=== PATIENT | male | born 1935 | race Caucasian/White ===

== ENCOUNTER 2016-11-23 07:34 | Inpatient (IN) | payer MEDICARE, MEDICAID ==
[~2016-11-23] VITALS: Ht 180.3 cm; Wt 75.8 kg
[~2016-11-23 07:34] MED LIST: ACET-1757 PO; ALPR0.25 PO; AMLO2.5T PO; BISA10SU54 PR; CARV3.122 PO; CARV6.2512 PO; CYAN10002 IM; DOCU-30 PO; FLUT9.9S NAS; HEPA5000 SQ; HYDR-3240 PO; IBUP200T5 PO; LEVO50TA PO; LEVO50TA5 PO; LEVO75TA PO; LISI-170 PO; LORA-446 IVPush; LOSA50TA6 PO; MULT-750 PO; POLY17PO5 PO
[2016-11-23] MEDS ORDERED: SODIUM CHLORIDE 0.9% 1,000 ML IV ONE (07:57)
[2016-11-23] MEDS ORDERED: ASPIRIN 81 MG TABLET CHEW PO ONE (08:00)
[2016-11-23] MEDS ORDERED: SODIUM CHLORIDE FLUSH 10ML SYR IVF ONE (08:00)
[2016-11-23] MEDS ORDERED: ASPIRIN 81 MG TABLET CHEW ONE (08:18)
[2016-11-23 08:39] LABS: HEMOGLOBIN 12.6 g/dL (13.7-18.0)
[2016-11-23 08:59] LABS: BLOOD UREA NITROGEN 9 mg/dL (7-18)
[2016-11-23 09:05] LABS: IS PT STATUS REG ER OR PRE ER? YES
[2016-11-23] MEDS ORDERED: AMPICILLIN/SULBACTAM 3 GM in SODIUM CHLORIDE 0.9% 100 ML IV ONE (09:30)
[2016-11-23] MEDS ORDERED: POLYETHYLENE GLYCOL 17 GM PACKET PO PRN (10:00)
[2016-11-23] MEDS ORDERED: ONDANSETRON 2MG/ML, 2ML IVP PRN (10:00)
[2016-11-23] MEDS: AMPICILLIN/SULBACTAM 1,500 MG in SODIUM CHLORIDE 0.9% 50 ML IV SCH ×3 (10:00→21:54)
[2016-11-23] MEDS: FLUTICASONE NASAL SPRAY 16GM NAS SCH (10:00)
[2016-11-23] MEDS ORDERED: MORPHINE SULFATE 4 MG/ML, 1ML IVPush PRN (10:00)
[2016-11-23] MEDS ORDERED: VANCOMYCIN PER PHARMACY MC PRN (10:00)
[2016-11-23] MEDS ORDERED: PLEASE ENTER ALLERGIES MC SCH ×2 (11:00)
[2016-11-23] MEDS ORDERED: HYDROcodone/APAP 5/325 TABLET ONE (12:03)
[2016-11-23] MEDS: SODIUM CHLORIDE 0.9% 1,000 ML IV SCH ×2 (12:08→17:23)
[2016-11-23] MEDS: HYDROcodone/APAP 5/325 TABLET PO PRN ×3 (12:08→23:15)
[2016-11-23 13:51] VITALS: BP 132/69
[2016-11-23] MEDS ORDERED: PHARMACOKINETIC CONSULTATION MC ONE (14:30)
[2016-11-23] MEDS ORDERED: PHARMACOKINETIC MONITORING MC PRN (14:30)
[2016-11-23] MEDS: ENOXAPARIN 40 MG/0.4 ML SQ SCH (17:23)
[2016-11-23] MEDS: VANCOMYCIN 1,400 MG in SODIUM CHLORIDE 0.9% 250 ML IV SCH (17:23)
[2016-11-23] MEDS: LEVOTHYROXINE 75 MCG TABLET PO SCH (17:23)
[2016-11-23 18:57] VITALS: BP 168/87
[2016-11-24] MEDS: SODIUM CHLORIDE 0.9% 1,000 ML IV SCH ×3 (01:30→16:49)
[2016-11-24 02:00] VITALS: BP 146/73
[2016-11-24] MEDS: AMPICILLIN/SULBACTAM 1,500 MG in SODIUM CHLORIDE 0.9% 50 ML IV SCH ×4 (04:21→21:34)
[2016-11-24 05:21] LABS: HEMOGLOBIN 10.4 g/dL (13.7-18.0)
[2016-11-24 05:35] LABS: BLOOD UREA NITROGEN 15 mg/dL (7-18)
[2016-11-24] MEDS: HYDROcodone/APAP 5/325 TABLET PO PRN ×3 (05:57→19:42)
[2016-11-24 07:11] VITALS: BP 128/72
[2016-11-24] MEDS: SENNA/DOCUSATE TABLET PO SCH (09:00)
[2016-11-24] MEDS: ENOXAPARIN 40 MG/0.4 ML SQ SCH (09:40)
[2016-11-24] MEDS: FLUTICASONE NASAL SPRAY 16GM NAS SCH (09:41)
[2016-11-24] MEDS: CYANOCOBALAMIN 1,000 MCG/ML, 1ML IM SCH (09:41)
[2016-11-24] MEDS: VANCOMYCIN 1,400 MG in SODIUM CHLORIDE 0.9% 250 ML IV SCH (14:00)
[2016-11-24 14:43] VITALS: BP 124/63
[2016-11-24 20:17] VITALS: BP 134/63
[2016-11-25] MEDS: HYDROcodone/APAP 5/325 TABLET PO PRN (00:19)
[2016-11-25 02:12] VITALS: BP 151/82
[2016-11-25] MEDS: SODIUM CHLORIDE 0.9% 1,000 ML IV SCH (03:43)
[2016-11-25] MEDS: AMPICILLIN/SULBACTAM 1,500 MG in SODIUM CHLORIDE 0.9% 50 ML IV SCH ×4 (03:44→22:18)
[2016-11-25] MEDS: LORazepam 2 MG/ML, 1ML IVPush PRN ×2 (03:49→19:30)
[2016-11-25 05:25] LABS: HEMOGLOBIN 9.8 g/dL (13.7-18.0)
[2016-11-25 05:33] LABS: BLOOD UREA NITROGEN 13 mg/dL (7-18)
[2016-11-25 06:45] VITALS: BP 169/84
[2016-11-25] MEDS: FLUTICASONE NASAL SPRAY 16GM NAS SCH (09:02)
[2016-11-25] MEDS: CYANOCOBALAMIN 1,000 MCG/ML, 1ML IM SCH (09:02)
[2016-11-25] MEDS: SENNA/DOCUSATE TABLET PO SCH (09:03)
[2016-11-25] MEDS: LEVOTHYROXINE 75 MCG TABLET PO SCH (09:03)
[2016-11-25] MEDS: AMLODIPINE 5 MG TABLET PO SCH (09:06)
[2016-11-25] MEDS: ENOXAPARIN 40 MG/0.4 ML SQ SCH (09:06)
[2016-11-25 14:10] VITALS: BP 152/85
[2016-11-25] MEDS: VANCOMYCIN 1,400 MG in SODIUM CHLORIDE 0.9% 250 ML IV SCH (15:32)
[2016-11-25 19:57] VITALS: BP 152/84
[2016-11-26 03:00] VITALS: BP 172/90
[2016-11-26] MEDS: LORazepam 2 MG/ML, 1ML IVPush PRN (03:20)
[2016-11-26] MEDS: AMPICILLIN/SULBACTAM 1,500 MG in SODIUM CHLORIDE 0.9% 50 ML IV SCH ×2 (03:20→10:26)
[2016-11-26 06:48] VITALS: BP 150/88
[2016-11-26] MEDS: FLUTICASONE NASAL SPRAY 16GM NAS SCH (08:57)
[2016-11-26] MEDS: AMLODIPINE 5 MG TABLET PO SCH (08:58)
[2016-11-26] MEDS: SENNA/DOCUSATE TABLET PO SCH (08:58)
[2016-11-26] MEDS: ENOXAPARIN 40 MG/0.4 ML SQ SCH (10:27)
[2016-11-26 13:56] VITALS: BP 161/80
[2016-11-26] MEDS: CYANOCOBALAMIN 1,000 MCG TABLET PO SCH (14:26)
[2016-11-26] MEDS: VANCOMYCIN 1,400 MG in SODIUM CHLORIDE 0.9% 250 ML IV SCH (14:26)
[2016-11-26] MEDS: CHLORDIAZEPOXIDE 25 MG CAPSULE PO SCH ×2 (17:55→21:06)
[2016-11-26] MEDS: PIPERACILLIN/TAZO/PMX 3.375GM 50 ML IV SCH ×2 (17:55→23:03)
[2016-11-26 18:15] VITALS: BP 141/82
[2016-11-27 03:54] VITALS: BP 171/94
[2016-11-27] MEDS: PIPERACILLIN/TAZO/PMX 3.375GM 50 ML IV SCH ×4 (05:11→22:55)
[2016-11-27 05:12] LABS: BLOOD UREA NITROGEN 12 mg/dL (7-18)
[2016-11-27 06:56] VITALS: BP 161/91
[2016-11-27] MEDS: CHLORDIAZEPOXIDE 25 MG CAPSULE PO SCH ×3 (08:30→21:50)
[2016-11-27] MEDS: ENOXAPARIN 40 MG/0.4 ML SQ SCH (08:30)
[2016-11-27] MEDS: FLUTICASONE NASAL SPRAY 16GM NAS SCH (08:30)
[2016-11-27] MEDS: CYANOCOBALAMIN 1,000 MCG TABLET PO SCH (08:30)
[2016-11-27] MEDS: LEVOTHYROXINE 75 MCG TABLET PO SCH (08:31)
[2016-11-27] MEDS: AMLODIPINE 5 MG TABLET PO SCH (08:31)
[2016-11-27] MEDS: SENNA/DOCUSATE TABLET PO SCH (08:31)
[2016-11-27] MEDS: METOPROLOL TARTRATE 25 MG TABLET PO SCH ×2 (11:31→17:24)
[2016-11-27] MEDS: HYDROcodone/APAP 5/325 TABLET PO PRN ×2 (11:52→19:21)
[2016-11-27 14:05] VITALS: BP 119/63
[2016-11-27] MEDS: VANCOMYCIN 1,400 MG in SODIUM CHLORIDE 0.9% 250 ML IV SCH (14:17)
[2016-11-27 20:14] VITALS: BP 145/87
[2016-11-28 01:28] VITALS: BP 131/77
[2016-11-28] MEDS: HYDROcodone/APAP 5/325 TABLET PO PRN ×3 (02:27→23:26)
[2016-11-28] MEDS: PIPERACILLIN/TAZO/PMX 3.375GM 50 ML IV SCH ×4 (05:23→23:19)
[2016-11-28] MEDS: METOPROLOL TARTRATE 25 MG TABLET PO SCH ×2 (06:09→17:46)
[2016-11-28 07:38] VITALS: BP 132/71
[2016-11-28] MEDS: FLUTICASONE NASAL SPRAY 16GM NAS SCH (08:10)
[2016-11-28] MEDS: SENNA/DOCUSATE TABLET PO SCH (08:10)
[2016-11-28] MEDS: AMLODIPINE 5 MG TABLET PO SCH (08:11)
[2016-11-28] MEDS: CYANOCOBALAMIN 1,000 MCG TABLET PO SCH (08:11)
[2016-11-28] MEDS: CHLORDIAZEPOXIDE 25 MG CAPSULE PO SCH (08:11)
[2016-11-28] MEDS: ENOXAPARIN 40 MG/0.4 ML SQ SCH (08:11)
[2016-11-28] MEDS: DOXYCYCLINE 100MG TABLET PO SCH ×2 (10:46→20:43)
[2016-11-28 12:56] VITALS: BP 119/68
[2016-11-28 16:32] VITALS: BP 116/71
[2016-11-28 18:26] VITALS: BP 138/83
[2016-11-28] MEDS: CHLORDIAZEPOXIDE 10 MG CAPSULE PO SCH (20:48)
[2016-11-29 01:00] VITALS: BP 135/75
[2016-11-29] MEDS: HYDROcodone/APAP 5/325 TABLET PO PRN (04:28)
[2016-11-29 04:57] LABS: HEMOGLOBIN 11.2 g/dL (13.7-18.0)
[2016-11-29] MEDS: PIPERACILLIN/TAZO/PMX 3.375GM 50 ML IV SCH ×2 (04:58→11:28)
[2016-11-29 05:09] LABS: BLOOD UREA NITROGEN 18 mg/dL (7-18)
[2016-11-29] MEDS: METOPROLOL TARTRATE 25 MG TABLET PO SCH ×2 (05:58→18:35)
[2016-11-29 08:28] VITALS: BP 138/82
[2016-11-29] MEDS: FLUTICASONE NASAL SPRAY 16GM NAS SCH (10:39)
[2016-11-29] MEDS: LEVOTHYROXINE 75 MCG TABLET PO SCH (10:39)
[2016-11-29] MEDS: DOXYCYCLINE 100MG TABLET PO SCH (10:39)
[2016-11-29] MEDS: AMLODIPINE 5 MG TABLET PO SCH (10:40)
[2016-11-29] MEDS: ENOXAPARIN 40 MG/0.4 ML SQ SCH (10:40)
[2016-11-29] MEDS: CHLORDIAZEPOXIDE 10 MG CAPSULE PO SCH (10:40)
[2016-11-29] MEDS: CYANOCOBALAMIN 1,000 MCG TABLET PO SCH (10:40)
[2016-11-29] MEDS: SENNA/DOCUSATE TABLET PO SCH (10:41)
[2016-11-29] MEDS ORDERED: TAMSULOSIN 0.4 MG CAP.ER.24H PO SCH (13:00)
[2016-11-29] MEDS ORDERED: TAMS-11 PO (13:27)
[2016-11-29] MEDS ORDERED: SULF1TAB3 PO (13:27)
[2016-11-29] MEDS ORDERED: AMLO5TAB2 PO (13:27)
[2016-11-29] MEDS ORDERED: LORA-445 PO (13:28)
[2016-11-29 14:00] VITALS: BP 128/75
[2016-11-29] MEDS ORDERED: SULFAMETH./TRIMETHOPRIM DS 800MG/160MG TABLET PO SCH (21:00)
== END 2016-11-29 19:00 | DRG 872 ==
LOC: ED 08:39 → EDIP 09:10 → 3NE 13:37
PROVIDERS: ADMIT Internal Medicine; ATTEND Internal Medicine
PROC: 0T9B70Z Drainage of Bladder with Drainage Device, Via Natural or Artificial Opening (ICD-10-PCS; principal; 2016-11-23)
DX: A41.9 Sepsis, unspecified organism (principal); L03.115 Cellulitis of right lower limb; F10.239 Alcohol dependence with withdrawal, unspecified; E87.1 Hypo-osmolality and hyponatremia; Z66 Do not resuscitate; E03.9 Hypothyroidism, unspecified; I10 Essential (primary) hypertension; I49.5 Sick sinus syndrome; I25.10 Atherosclerotic heart disease of native coronary artery without angina pectoris; J30.2 Other seasonal allergic rhinitis; D53.9 Nutritional anemia, unspecified; Z95.0 Presence of cardiac pacemaker; Z90.89 Acquired absence of other organs; Z88.5 Allergy status to narcotic agent; Z91.19 Patient's noncompliance with other medical treatment and regimen
CPT/HCPCS: 36415; 71010; 80048; 80202; 81003; 82040; 83605; 83735; 84145; 84484; 85025; 85610; 85730; 87040; 87070; 87186; 87205; 93005; 93922; 99285; J0295; J1650; J2543; J3370; J2060; J3420; J7030; J7050

== ENCOUNTER 2016-12-17 13:31 | Inpatient (IN) | payer MEDICARE, MEDICAID ==
[~2016-12-17] VITALS: Ht 180.3 cm; Wt 75.4 kg
[~2016-12-17 13:31] MED LIST changes: +AMLO5TAB2 PO; +LORA-445 PO; +SULF1TAB3 PO; +TAMS-11 PO
[2016-12-17] MEDS ORDERED: SODIUM CHLORIDE FLUSH 10ML SYR IVF ONE (14:00)
[2016-12-17 14:17] LABS: HEMOGLOBIN 12.4 g/dL (13.7-18.0)
[2016-12-17 14:21] LABS: ASPARTATE AMINO TRANSFERASE 18 U/L (15-37); BLOOD UREA NITROGEN 16 mg/dL (7-18)
[2016-12-17] MEDS ORDERED: METO25TA35 PO (15:35)
[2016-12-17] MEDS ORDERED: AMLO5TAB2 PO (15:35)
[2016-12-17] MEDS ORDERED: OMNIPAQUE 350 MG/ML, 100ML BOTTLE ONE (16:17)
[2016-12-17 18:30] VITALS: BP 164/81
[2016-12-17] MEDS ORDERED: BISACODYL 10 MG SUPP PR PRN (18:30)
[2016-12-17] MEDS ORDERED: MORPHINE SULFATE 4 MG/ML, 1ML IVPush PRN (18:30)
[2016-12-17] MEDS ORDERED: DOCUSATE 100 MG CAPSULE PO PRN (18:30)
[2016-12-17] MEDS: ENOXAPARIN 40 MG/0.4 ML SQ SCH (18:30)
[2016-12-17] MEDS ORDERED: ONDANSETRON 2MG/ML, 2ML IVP PRN (18:30)
[2016-12-17] MEDS ORDERED: LORazepam 1MG TABLET PO PRN (18:30)
[2016-12-17] MEDS ORDERED: POLYETHYLENE GLYCOL 17 GM PACKET PO PRN (18:30)
[2016-12-17] MEDS ORDERED: HYDROcodone/APAP 5/325 TABLET PO PRN (18:30)
[2016-12-17] MEDS ORDERED: ONDANSETRON ODT 4 MG PO PRN (18:30)
[2016-12-17] MEDS ORDERED: ENALAPRILAT 1.25 MG/ML, 2ML IVPush PRN (18:30)
[2016-12-17 19:15] VITALS: BP 164/81
[2016-12-17] MEDS: METOPROLOL TARTRATE 25 MG TABLET PO SCH (21:00)
[2016-12-17 21:37] LABS: DAU SCREEN DISCLAIMER
[2016-12-18 00:19] VITALS: BP 152/94
[2016-12-18 06:10] LABS: HEMOGLOBIN 12.3 g/dL (13.7-18.0)
[2016-12-18] MEDS: LEVOTHYROXINE 75 MCG TABLET PO SCH (06:30)
[2016-12-18 06:58] LABS: ASPARTATE AMINO TRANSFERASE 18 U/L (15-37); BLOOD UREA NITROGEN 16 mg/dL (7-18)
[2016-12-18 07:25] VITALS: BP 155/84
[2016-12-18] MEDS: AMLODIPINE 5 MG TABLET PO SCH (09:50)
[2016-12-18] MEDS: TAMSULOSIN 0.4 MG CAP.ER.24H PO SCH (09:51)
[2016-12-18] MEDS: MULTIVITAMIN 1 TABLET PO SCH (09:51)
[2016-12-18] MEDS: FOLIC ACID 1 MG TABLET PO SCH (09:51)
[2016-12-18] MEDS: THIAMINE 100MG TABLET PO SCH (09:51)
[2016-12-18] MEDS: METOPROLOL TARTRATE 25 MG TABLET PO SCH ×2 (09:52→21:00)
[2016-12-18] MEDS ORDERED: LORazepam 1MG TABLET PO PRN ×4 (11:30)
[2016-12-18] MEDS ORDERED: POTASSIUM CHLORIDE 20 MEQ, MAGNESIUM SULFATE 1 GM, THIAMINE 100 MG, FOLIC ACID 1 MG, MV... IV SCH (11:30)
[2016-12-18] MEDS ORDERED: LORazepam 0.5MG TABLET PO PRN (11:30)
[2016-12-18] MEDS ORDERED: LORazepam 2 MG/ML, 1ML IV PRN ×5 (11:30)
[2016-12-18 13:08] VITALS: BP 151/89
[2016-12-18] MEDS ORDERED: CYANOCOBALAMIN 1,000 MCG/ML, 1ML IM ONE (17:30)
[2016-12-18] MEDS: ENOXAPARIN 40 MG/0.4 ML SQ SCH (17:37)
[2016-12-18 18:54] VITALS: BP 120/73
[2016-12-19 01:21] VITALS: BP 153/83
[2016-12-19 06:26] LABS: HEMOGLOBIN 12.1 g/dL (13.7-18.0)
[2016-12-19 06:44] LABS: ASPARTATE AMINO TRANSFERASE 20 U/L (15-37); BLOOD UREA NITROGEN 14 mg/dL (7-18)
[2016-12-19 06:55] VITALS: BP 142/77
[2016-12-19] MEDS: MULTIVITAMIN 1 TABLET PO SCH (09:03)
[2016-12-19] MEDS: METOPROLOL TARTRATE 25 MG TABLET PO SCH ×2 (09:03→21:35)
[2016-12-19] MEDS: THIAMINE 100MG TABLET PO SCH (09:03)
[2016-12-19] MEDS: FOLIC ACID 1 MG TABLET PO SCH (09:03)
[2016-12-19] MEDS: AMLODIPINE 5 MG TABLET PO SCH (09:03)
[2016-12-19] MEDS: TAMSULOSIN 0.4 MG CAP.ER.24H PO SCH (11:46)
[2016-12-19 13:23] VITALS: BP 149/87
[2016-12-19] MEDS: FLUTICASONE NASAL SPRAY 16GM NAS SCH (13:42)
[2016-12-19] MEDS: ENOXAPARIN 40 MG/0.4 ML SQ SCH (17:51)
[2016-12-19] MEDS: ACETAMINOPHEN 325 MG TABLET PO PRN (17:51)
[2016-12-19 19:09] VITALS: BP 112/71
[2016-12-20] MEDS: ACETAMINOPHEN 325 MG TABLET PO PRN
[2016-12-20 00:50] VITALS: BP 147/86
[2016-12-20 05:26] LABS: HEMOGLOBIN 12.5 g/dL (13.7-18.0)
[2016-12-20 05:37] LABS: BLOOD UREA NITROGEN 14 mg/dL (7-18)
[2016-12-20 05:40] LABS: ASPARTATE AMINO TRANSFERASE 10 U/L (15-37)
[2016-12-20] MEDS: LEVOTHYROXINE 75 MCG TABLET PO SCH (05:59)
[2016-12-20 06:38] VITALS: BP 126/73
[2016-12-20] MEDS: TAMSULOSIN 0.4 MG CAP.ER.24H PO SCH (10:08)
[2016-12-20] MEDS: FLUTICASONE NASAL SPRAY 16GM NAS SCH (10:08)
[2016-12-20] MEDS: AMLODIPINE 5 MG TABLET PO SCH (10:09)
[2016-12-20] MEDS: THIAMINE 100MG TABLET PO SCH (10:10)
[2016-12-20] MEDS: METOPROLOL TARTRATE 25 MG TABLET PO SCH ×2 (10:10→20:13)
[2016-12-20] MEDS: MULTIVITAMIN 1 TABLET PO SCH (10:10)
[2016-12-20] MEDS: FOLIC ACID 1 MG TABLET PO SCH (10:10)
[2016-12-20 14:27] VITALS: BP 114/69
[2016-12-20] MEDS: ENOXAPARIN 40 MG/0.4 ML SQ SCH (17:32)
[2016-12-20 18:30] VITALS: BP 109/68
[2016-12-21 01:06] VITALS: BP 126/79
[2016-12-21 05:06] LABS: HEMOGLOBIN 12.4 g/dL (13.7-18.0)
[2016-12-21 05:19] LABS: BLOOD UREA NITROGEN 18 mg/dL (7-18)
[2016-12-21 05:23] LABS: ASPARTATE AMINO TRANSFERASE 9 U/L (15-37)
[2016-12-21 06:45] VITALS: BP 130/77
[2016-12-21] MEDS: FLUTICASONE NASAL SPRAY 16GM NAS SCH (08:10)
[2016-12-21] MEDS: AMLODIPINE 5 MG TABLET PO SCH (08:11)
[2016-12-21] MEDS: METOPROLOL TARTRATE 25 MG TABLET PO SCH ×2 (08:11→21:00)
[2016-12-21] MEDS: THIAMINE 100MG TABLET PO SCH (08:11)
[2016-12-21] MEDS: FOLIC ACID 1 MG TABLET PO SCH (08:11)
[2016-12-21] MEDS: TAMSULOSIN 0.4 MG CAP.ER.24H PO SCH (08:11)
[2016-12-21] MEDS: MULTIVITAMIN 1 TABLET PO SCH (08:11)
[2016-12-21 12:49] VITALS: BP 100/68
[2016-12-21] MEDS: ENOXAPARIN 40 MG/0.4 ML SQ SCH (18:30)
[2016-12-21 19:23] VITALS: BP 108/67
[2016-12-21 20:45] VITALS: BP 113/71
[2016-12-21 20:46] VITALS: BP 117/71
[2016-12-22 00:28] VITALS: BP 122/73
[2016-12-22] MEDS: LEVOTHYROXINE 75 MCG TABLET PO SCH (05:07)
[2016-12-22 05:58] LABS: HEMOGLOBIN 12.4 g/dL (13.7-18.0)
[2016-12-22 06:21] LABS: ASPARTATE AMINO TRANSFERASE 10 U/L (15-37); BLOOD UREA NITROGEN 23 mg/dL (7-18)
[2016-12-22 07:06] VITALS: BP 140/76
[2016-12-22] MEDS: FOLIC ACID 1 MG TABLET PO SCH (10:29)
[2016-12-22] MEDS: AMLODIPINE 5 MG TABLET PO SCH (10:29)
[2016-12-22] MEDS: THIAMINE 100MG TABLET PO SCH (10:29)
[2016-12-22] MEDS: FLUTICASONE NASAL SPRAY 16GM NAS SCH (10:29)
[2016-12-22] MEDS: TAMSULOSIN 0.4 MG CAP.ER.24H PO SCH (10:29)
[2016-12-22] MEDS: MULTIVITAMIN 1 TABLET PO SCH (10:29)
[2016-12-22] MEDS: METOPROLOL TARTRATE 25 MG TABLET PO SCH ×2 (10:29→20:32)
[2016-12-22] MEDS: ACETAMINOPHEN 325 MG TABLET PO PRN (10:36)
[2016-12-22 13:05] VITALS: BP 127/68
[2016-12-22] MEDS: ENOXAPARIN 40 MG/0.4 ML SQ SCH (18:30)
[2016-12-22 18:39] VITALS: BP 108/69
[2016-12-23 02:19] VITALS: BP 114/70
[2016-12-23] MEDS: LEVOTHYROXINE 75 MCG TABLET PO SCH (06:20)
[2016-12-23] MEDS ORDERED: Thiamine Hcl PO (06:55)
[2016-12-23] MEDS ORDERED: FOLI-17 PO (06:55)
[2016-12-23 07:10] VITALS: BP 117/72
[2016-12-23] MEDS: FLUTICASONE NASAL SPRAY 16GM NAS SCH (09:00)
[2016-12-23] MEDS: AMLODIPINE 5 MG TABLET PO SCH (09:01)
[2016-12-23] MEDS: TAMSULOSIN 0.4 MG CAP.ER.24H PO SCH (09:01)
[2016-12-23] MEDS: FOLIC ACID 1 MG TABLET PO SCH (09:01)
[2016-12-23] MEDS: METOPROLOL TARTRATE 25 MG TABLET PO SCH (09:01)
[2016-12-23] MEDS: MULTIVITAMIN 1 TABLET PO SCH (09:01)
[2016-12-23] MEDS: THIAMINE 100MG TABLET PO SCH (09:01)
[2016-12-23 12:44] VITALS: BP 140/79
== END 2016-12-23 14:16 | disposition home health service (06) | DRG 897 ==
LOC: MERGE 13:31 → ED 14:34 → EDIP 15:48 → 3NE 18:20
PROVIDERS: ADMIT Internal Medicine; ATTEND Internal Medicine
PROC: 0T9B70Z Drainage of Bladder with Drainage Device, Via Natural or Artificial Opening (ICD-10-PCS; principal; 2016-12-17)
DX: F10.129 Alcohol abuse with intoxication, unspecified (principal); E87.1 Hypo-osmolality and hyponatremia; E44.1 Mild protein-calorie malnutrition; D53.9 Nutritional anemia, unspecified; E03.9 Hypothyroidism, unspecified; I25.10 Atherosclerotic heart disease of native coronary artery without angina pectoris; R13.10 Dysphagia, unspecified; R06.09 Other forms of dyspnea; R62.7 Adult failure to thrive; E86.0 Dehydration; I49.5 Sick sinus syndrome; I11.0 Hypertensive heart disease with heart failure; I50.9 Heart failure, unspecified; J30.9 Allergic rhinitis, unspecified; E78.5 Hyperlipidemia, unspecified; E86.1 Hypovolemia; Z68.23 Body mass index [BMI] 23.0-23.9, adult; Z91.81 History of falling; Z95.0 Presence of cardiac pacemaker; Z90.89 Acquired absence of other organs
CPT/HCPCS: 36415; 70450; 70496; 70498; 71010; 80053; 80061; 80307; 80329; 81003; 82607; 82746; 83735; 84100; 84439; 84443; 85025; 85651; 93005; 96374; J3411; J3475; J3480; Q9967; G0480; J3420; J7030

== ENCOUNTER 2017-01-23 09:16 | Inpatient (IN) | payer MEDICARE, MEDICAID ==
[~2017-01-23] VITALS: Ht 180.3 cm; Wt 74.4 kg
[~2017-01-23 09:16] MED LIST changes: +FOLI-17 PO; +METO25TA35 PO; +Thiamine Hcl PO
[2017-01-23] MEDS ORDERED: SODIUM CHLORIDE 0.9% 1,000 ML IV ONE (10:05)
[2017-01-23] MEDS ORDERED: CEFTRIAXONE PMX 1GM/50ML 50 ML ONE (10:20)
[2017-01-23] MEDS ORDERED: SODIUM CHLORIDE FLUSH 10ML SYR IVF ONE (10:30)
[2017-01-23] MEDS ORDERED: CEFTRIAXONE PMX 1GM/50ML 50 ML IVPB ONE (10:30)
[2017-01-23 10:43] LABS: ASPARTATE AMINO TRANSFERASE 11 U/L (15-37); BLOOD UREA NITROGEN 29 mg/dL (7-18)
[2017-01-23] MEDS ORDERED: HYDROmorphone 1 MG/ML, 1ML ONE ×2 (11:24→12:40)
[2017-01-23] MEDS ORDERED: ONDANSETRON 2MG/ML, 2ML ONE (11:24)
[2017-01-23] MEDS: HYDROmorphone 1 MG/ML, 1ML IVPush PRN ×2 (11:30→12:43)
[2017-01-23] MEDS ORDERED: ONDANSETRON 2MG/ML, 2ML IVPush ONE (11:30)
[2017-01-23] MEDS ORDERED: SODIUM CHLORIDE FLUSH 10ML SYR IVF PRN (11:30)
[2017-01-23 13:22] VITALS: BP 151/97
[2017-01-23] MEDS ORDERED: LABETALOL 5MG/ML, 20ML IVPush PRN (13:30)
[2017-01-23] MEDS ORDERED: POLYETHYLENE GLYCOL 17 GM PACKET PO PRN (13:30)
[2017-01-23] MEDS ORDERED: ONDANSETRON 2MG/ML, 2ML IVPush PRN (13:30)
[2017-01-23] MEDS ORDERED: ONDANSETRON ODT 4 MG PO PRN (13:30)
[2017-01-23] MEDS ORDERED: PLEASE ENTER ALLERGIES MC SCH ×2 (14:00)
[2017-01-23] MEDS: HEPARIN 5,000 UNITS/ML, 1ML SQ SCH ×2 (16:50→20:49)
[2017-01-23] MEDS: LEVOTHYROXINE 75 MCG TABLET PO SCH (16:50)
[2017-01-23] MEDS: SODIUM CHLORIDE 0.9% 1,000 ML IV SCH (16:50)
[2017-01-23 16:54] LABS: DAU SCREEN DISCLAIMER
[2017-01-23] MEDS: HYDROcodone/APAP 5/325 TABLET PO PRN (16:59)
[2017-01-23] MEDS ORDERED: PHARMACY MAY ADJ FOR RENAL FX MC PRN (17:00)
[2017-01-23] MEDS: CEFTAROLINE 300 MG in SODIUM CHLORIDE 0.9% 100 ML IV SCH (18:25)
[2017-01-23 19:56] VITALS: BP 116/64
[2017-01-23] MEDS: METOPROLOL TARTRATE 25 MG TABLET PO SCH (19:59)
[2017-01-23 20:04] VITALS: BP 96/57
[2017-01-23] MEDS ORDERED: HYDROmorphone 1 MG/ML, 1ML IV ONE (21:00)
[2017-01-23 21:40] VITALS: BP 105/64
[2017-01-24] MEDS: SODIUM CHLORIDE 0.9% 1,000 ML IV SCH ×3 (00:19→19:44)
[2017-01-24] MEDS: HYDROcodone/APAP 5/325 TABLET PO PRN ×4 (00:19→21:30)
[2017-01-24 01:18] VITALS: BP 98/62
[2017-01-24 03:17] VITALS: BP 124/68
[2017-01-24] MEDS: HEPARIN 5,000 UNITS/ML, 1ML SQ SCH ×3 (05:19→21:22)
[2017-01-24] MEDS: LEVOTHYROXINE 50 MCG TABLET PO SCH (05:23)
[2017-01-24] MEDS: CEFTAROLINE 300 MG in SODIUM CHLORIDE 0.9% 100 ML IV SCH (05:23)
[2017-01-24 06:18] LABS: BLOOD UREA NITROGEN 29 mg/dL (7-18)
[2017-01-24 06:23] LABS: ASPARTATE AMINO TRANSFERASE 10 U/L (15-37)
[2017-01-24 07:21] VITALS: BP 117/65
[2017-01-24 08:52] LABS: DIFF TOTAL CELLS COUNTED 100 CELL DIFF
[2017-01-24] MEDS: TAMSULOSIN 0.4 MG CAP.ER.24H PO SCH (09:04)
[2017-01-24] MEDS: SENNA/DOCUSATE TABLET PO SCH (09:05)
[2017-01-24] MEDS: AMLODIPINE 5 MG TABLET PO SCH (09:05)
[2017-01-24] MEDS: METOPROLOL TARTRATE 25 MG TABLET PO SCH ×2 (09:05→21:22)
[2017-01-24] MEDS: FOLIC ACID 1 MG TABLET PO SCH (09:05)
[2017-01-24] MEDS: THIAMINE 100MG TABLET PO SCH (09:05)
[2017-01-24 09:51] LABS: VERIFY COUNTS? YES
[2017-01-24] MEDS: SILVER SULF. CRM 1%, 400GM TP SCH ×2 (10:31→21:21)
[2017-01-24] MEDS: FLUTICASONE NASAL SPRAY 16GM NAS SCH (11:49)
[2017-01-24 13:08] VITALS: BP 114/60
[2017-01-24] MEDS: CEFTAROLINE 600 MG in SODIUM CHLORIDE 0.9% 100 ML IV SCH (16:46)
[2017-01-24 19:40] VITALS: BP 101/53
[2017-01-25] MEDS: SODIUM CHLORIDE 0.9% 1,000 ML IV SCH ×2 (01:58→10:19)
[2017-01-25 02:03] VITALS: BP 107/63
[2017-01-25] MEDS: CEFTAROLINE 600 MG in SODIUM CHLORIDE 0.9% 100 ML IV SCH ×2 (05:02→16:43)
[2017-01-25] MEDS: HEPARIN 5,000 UNITS/ML, 1ML SQ SCH ×3 (06:00→20:48)
[2017-01-25] MEDS: LEVOTHYROXINE 75 MCG TABLET PO SCH (06:15)
[2017-01-25 06:19] LABS: ASPARTATE AMINO TRANSFERASE 14 U/L (15-37); BLOOD UREA NITROGEN 20 mg/dL (7-18)
[2017-01-25 06:56] LABS: DIFF TOTAL CELLS COUNTED 100 CELL DIFF
[2017-01-25 06:59] LABS: VERIFY COUNTS? YES
[2017-01-25 07:28] VITALS: BP 123/62
[2017-01-25] MEDS: FOLIC ACID 1 MG TABLET PO SCH (07:41)
[2017-01-25] MEDS: FLUTICASONE NASAL SPRAY 16GM NAS SCH (07:41)
[2017-01-25] MEDS: TAMSULOSIN 0.4 MG CAP.ER.24H PO SCH (07:41)
[2017-01-25] MEDS: METOPROLOL TARTRATE 25 MG TABLET PO SCH ×2 (07:42→20:48)
[2017-01-25] MEDS: SILVER SULF. CRM 1%, 400GM TP SCH ×2 (07:42→20:48)
[2017-01-25] MEDS: THIAMINE 100MG TABLET PO SCH (07:42)
[2017-01-25] MEDS: SENNA/DOCUSATE TABLET PO SCH (07:42)
[2017-01-25] MEDS: AMLODIPINE 5 MG TABLET PO SCH (07:42)
[2017-01-25 16:30] VITALS: BP 157/76
[2017-01-25 19:10] VITALS: BP 146/73
[2017-01-26 02:02] VITALS: BP 145/85
[2017-01-26] MEDS: CEFTAROLINE 600 MG in SODIUM CHLORIDE 0.9% 100 ML IV SCH ×2 (04:44→17:02)
[2017-01-26] MEDS: HEPARIN 5,000 UNITS/ML, 1ML SQ SCH ×3 (04:44→22:00)
[2017-01-26 05:56] LABS: ASPARTATE AMINO TRANSFERASE 18 U/L (15-37); BLOOD UREA NITROGEN 12 mg/dL (7-18)
[2017-01-26 06:10] LABS: DIFF TOTAL CELLS COUNTED 100 CELL DIFF
[2017-01-26 06:14] LABS: VERIFY COUNTS? YES
[2017-01-26] MEDS: LEVOTHYROXINE 50 MCG TABLET PO SCH (07:52)
[2017-01-26 08:34] VITALS: BP 146/81
[2017-01-26] MEDS: SENNA/DOCUSATE TABLET PO SCH (09:00)
[2017-01-26] MEDS: FLUTICASONE NASAL SPRAY 16GM NAS SCH (09:13)
[2017-01-26] MEDS: THIAMINE 100MG TABLET PO SCH (09:14)
[2017-01-26] MEDS: METOPROLOL TARTRATE 25 MG TABLET PO SCH ×2 (09:14→20:19)
[2017-01-26] MEDS: FOLIC ACID 1 MG TABLET PO SCH (09:14)
[2017-01-26] MEDS: TAMSULOSIN 0.4 MG CAP.ER.24H PO SCH (09:14)
[2017-01-26] MEDS: AMLODIPINE 5 MG TABLET PO SCH (09:14)
[2017-01-26] MEDS: SILVER SULF. CRM 1%, 400GM TP SCH ×2 (09:15→22:13)
[2017-01-26] MEDS: HYDROcodone/APAP 5/325 TABLET PO PRN ×2 (09:37→18:01)
[2017-01-26] MEDS ORDERED: POTASSIUM CHLORIDE 20 MEQ TAB.ER.PRT PO ONE (10:00)
[2017-01-26] MEDS ORDERED: MAGNESIUM SULFATE PMX 2GM/50ML 50 ML IV ONE (11:30)
[2017-01-26 16:04] VITALS: BP 120/67
[2017-01-26] MEDS: CEFAZOLIN PMX 2GM/50ML 50 ML IVPB SCH (18:26)
[2017-01-26 19:47] VITALS: BP 106/62
[2017-01-26] MEDS: ATORVASTATIN 20 MG TABLET PO SCH (20:19)
[2017-01-27] MEDS: HYDROcodone/APAP 5/325 TABLET PO PRN ×4 (00:01→21:24)
[2017-01-27 01:30] VITALS: BP 143/72
[2017-01-27] MEDS: CEFAZOLIN PMX 2GM/50ML 50 ML IVPB SCH ×2 (02:33→09:37)
[2017-01-27] MEDS: ASPIRIN 81 MG TABLET EC PO SCH (05:48)
[2017-01-27] MEDS: LEVOTHYROXINE 75 MCG TABLET PO SCH (05:48)
[2017-01-27] MEDS: HEPARIN 5,000 UNITS/ML, 1ML SQ SCH ×3 (05:49→22:00)
[2017-01-27 05:57] LABS: BLOOD UREA NITROGEN 12 mg/dL (7-18)
[2017-01-27 05:59] LABS: ASPARTATE AMINO TRANSFERASE 14 U/L (15-37)
[2017-01-27 07:43] VITALS: BP 156/75
[2017-01-27] MEDS: SILVER SULF. CRM 1%, 400GM TP SCH ×2 (09:00→21:25)
[2017-01-27] MEDS: SENNA/DOCUSATE TABLET PO SCH (09:00)
[2017-01-27] MEDS: FLUTICASONE NASAL SPRAY 16GM NAS SCH (09:16)
[2017-01-27] MEDS: METOPROLOL TARTRATE 25 MG TABLET PO SCH ×2 (09:16→21:25)
[2017-01-27] MEDS: THIAMINE 100MG TABLET PO SCH (09:17)
[2017-01-27] MEDS: TAMSULOSIN 0.4 MG CAP.ER.24H PO SCH (09:17)
[2017-01-27] MEDS: AMLODIPINE 5 MG TABLET PO SCH (09:17)
[2017-01-27] MEDS: FOLIC ACID 1 MG TABLET PO SCH (09:18)
[2017-01-27 13:24] VITALS: BP 138/70
[2017-01-27 20:07] VITALS: BP 112/66
[2017-01-27] MEDS: ATORVASTATIN 20 MG TABLET PO SCH (21:24)
[2017-01-27] MEDS: AMOXICILLIN/CLAV 875-125MG TABLET PO SCH (21:24)
[2017-01-27] MEDS: SULFAMETH./TRIMETHOPRIM DS 800MG/160MG TABLET PO SCH (21:25)
[2017-01-28 01:50] VITALS: BP 132/74
[2017-01-28] MEDS: HEPARIN 5,000 UNITS/ML, 1ML SQ SCH ×2 (06:00→14:00)
[2017-01-28] MEDS: ASPIRIN 81 MG TABLET EC PO SCH (06:11)
[2017-01-28] MEDS: LEVOTHYROXINE 50 MCG TABLET PO SCH (06:11)
[2017-01-28 06:35] LABS: BLOOD UREA NITROGEN 12 mg/dL (7-18)
[2017-01-28 07:06] VITALS: BP 129/68
[2017-01-28] MEDS: THIAMINE 100MG TABLET PO SCH (08:39)
[2017-01-28] MEDS: SULFAMETH./TRIMETHOPRIM DS 800MG/160MG TABLET PO SCH (08:39)
[2017-01-28] MEDS: AMLODIPINE 5 MG TABLET PO SCH (08:39)
[2017-01-28] MEDS: METOPROLOL TARTRATE 25 MG TABLET PO SCH (08:40)
[2017-01-28] MEDS: AMOXICILLIN/CLAV 875-125MG TABLET PO SCH (08:42)
[2017-01-28] MEDS: TAMSULOSIN 0.4 MG CAP.ER.24H PO SCH (08:42)
[2017-01-28] MEDS: SENNA/DOCUSATE TABLET PO SCH (08:42)
[2017-01-28] MEDS: FOLIC ACID 1 MG TABLET PO SCH (08:42)
[2017-01-28] MEDS: FLUTICASONE NASAL SPRAY 16GM NAS SCH (08:45)
[2017-01-28] MEDS: HYDROcodone/APAP 5/325 TABLET PO PRN (09:46)
[2017-01-28] MEDS: SILVER SULF. CRM 1%, 400GM TP SCH (10:57)
[2017-01-28 12:37] VITALS: BP 104/59
[2017-01-28] MEDS ORDERED: ATOR20TA9 PO (12:50)
[2017-01-28] MEDS ORDERED: ASPI-621 PO (12:50)
[2017-01-28] MEDS ORDERED: SILV25CR4 TP (12:50)
[2017-01-28] MEDS ORDERED: HYDR-3240 PO (12:50)
[2017-01-28] MEDS ORDERED: LEVO75TA PO (12:50)
[2017-01-28] MEDS ORDERED: LEVO50TA PO (12:50)
[2017-01-28] MEDS ORDERED: AMOX1TAB12 PO (12:50)
[2017-01-28] MEDS ORDERED: SULF1TAB3 PO (12:50)
== END 2017-01-28 18:32 | disposition home or self-care (01) | DRG 871 ==
LOC: ED 11:23 → EDIP 11:24 → ED 12:03 → 3NE 13:07
DX: A41.9 Sepsis, unspecified organism (principal); N17.0 Acute kidney failure with tubular necrosis; E43 Unspecified severe protein-calorie malnutrition; E87.1 Hypo-osmolality and hyponatremia; L03.115 Cellulitis of right lower limb; L03.116 Cellulitis of left lower limb; I11.0 Hypertensive heart disease with heart failure; D64.9 Anemia, unspecified; E03.9 Hypothyroidism, unspecified; E16.2 Hypoglycemia, unspecified; I27.2 Other secondary pulmonary hypertension; I50.9 Heart failure, unspecified; K59.00 Constipation, unspecified; M21.371 Foot drop, right foot; M85.80 Other specified disorders of bone density and structure, unspecified site; N40.0 Benign prostatic hyperplasia without lower urinary tract symptoms; S91.301A Unspecified open wound, right foot, initial encounter; Z95.0 Presence of cardiac pacemaker; Z68.22 Body mass index [BMI] 22.0-22.9, adult; Z88.8 Allergy status to other drugs, medicaments and biological substances
CPT/HCPCS: 36415; 71010; 80048; 80053; 80061; 80307; 82040; 82607; 82728; 82746; 83540; 83550; 83690; 83735; 83880; 84439; 84443; 85025; 85610; 85651; 85730; 86850; 86900; 87040; 87070; 87075; 87077; 87186; 87205; 93005; 96365; 96375; J0690; J0696; J0712; J1170; J1644; J2405; J3475; J7030

== ENCOUNTER 2017-05-11 10:07 | Inpatient (IN) | payer MEDICARE, MEDICAID ==
[~2017-05-11] VITALS: Ht 180.3 cm; Wt 80.8 kg
[~2017-05-11 10:07] MED LIST changes: +AMOX1TAB12 PO; +ASPI-621 PO; +ATOR20TA9 PO; +DOCU-131 PO; -DOCU-30 PO; +IBUP-1484 PO; -IBUP200T5 PO; +SILV25CR6 TP; +SULF-169 PO; -SULF1TAB3 PO
[2017-05-11] MEDS ORDERED: SODIUM CHLORIDE FLUSH 10ML SYR IVF ONE (13:30)
[2017-05-11] MEDS ORDERED: SODIUM CHLORIDE 0.9% 1,000ML IVBOLUS ONE (13:30)
[2017-05-11] MEDS ORDERED: AMPICILLIN/SULBACTAM 3 GM in SODIUM CHLORIDE 0.9% 100 ML IVPB ONE (13:30)
[2017-05-11] MEDS ORDERED: DIPH,PERTUSS(ACELL),TET VAC/PF 0.5 ML IM-VACC ONE ×2 (13:30→14:40)
[2017-05-11 13:46] LABS: HEMATOCRIT 37.1 % (39.2-51.8); HEMOGLOBIN 12.2 g/dL (13.7-18.0); WHITE BLOOD COUNT 14.4 x10^3/uL (3.4-10)
[2017-05-11 13:59] LABS: ASPARTATE AMINO TRANSFERASE 9 U/L (15-37); BLOOD UREA NITROGEN 13 mg/dL (7-18)
[2017-05-11] MEDS ORDERED: morphine SULFATE 10 MG/ML, 1ML IVPush ONE (14:30)
[2017-05-11] MEDS ORDERED: MORPHINE SULFATE 4 MG/ML, 1ML ONE (14:38)
[2017-05-11] MEDS ORDERED: ONDANSETRON 2MG/ML, 2ML IVPush PRN (16:00)
[2017-05-11] MEDS ORDERED: morphine SULFATE 10 MG/ML, 1ML IVPush PRN (16:00)
[2017-05-11] MEDS: HEPARIN 5,000 UNITS/ML, 1ML SQ SCH ×3 (16:00→17:34)
[2017-05-11] MEDS ORDERED: POLYETHYLENE GLYCOL 17 GM PACKET PO PRN (16:00)
[2017-05-11] MEDS ORDERED: VANCOMYCIN PER PHARMACY MC PRN (16:00)
[2017-05-11] MEDS ORDERED: BISACODYL 10 MG SUPP PR PRN (16:00)
[2017-05-11] MEDS ORDERED: FURO-93 PO (16:05)
[2017-05-11] MEDS ORDERED: TRAM50TA2 PO (16:05)
[2017-05-11] MEDS ORDERED: PHARMACOKINETIC CONSULTATION MC ONE (17:00)
[2017-05-11] MEDS ORDERED: PHARMACOKINETIC MONITORING MC PRN (17:00)
[2017-05-11] MEDS: PIPERACILLIN/TAZO/PMX 3.375GM 50 ML IV SCH ×2 (17:30→22:16)
[2017-05-11] MEDS: SODIUM CHLORIDE 0.9% 1,000 ML IV SCH (17:30)
[2017-05-11 17:56] VITALS: BP 138/73
[2017-05-11] MEDS: VANCOMYCIN 1,500 MG in SODIUM CHLORIDE 0.9% 250 ML IV SCH (18:13)
[2017-05-11 19:21] VITALS: BP 148/72
[2017-05-11] MEDS: METOPROLOL TARTRATE 25 MG TABLET PO SCH (21:40)
[2017-05-11] MEDS: FLUTICASONE NASAL SPRAY 16GM NAS SCH (21:40)
[2017-05-11] MEDS: ATORVASTATIN 20 MG TABLET PO SCH (21:40)
[2017-05-12 01:09] VITALS: BP 124/69
[2017-05-12] MEDS: PIPERACILLIN/TAZO/PMX 3.375GM 50 ML IV SCH ×4 (04:20→22:27)
[2017-05-12 05:40] LABS: HEMATOCRIT 30.4 % (39.2-51.8); HEMOGLOBIN 10.2 g/dL (13.7-18.0); WHITE BLOOD COUNT 10.3 x10^3/uL (3.4-10)
[2017-05-12 05:45] LABS: BLOOD UREA NITROGEN 14 mg/dL (7-18)
[2017-05-12 05:48] LABS: ASPARTATE AMINO TRANSFERASE 5 U/L (15-37)
[2017-05-12] MEDS: SODIUM CHLORIDE 0.9% 1,000 ML IV SCH ×2 (06:01→16:05)
[2017-05-12] MEDS: ASPIRIN 81 MG TABLET EC PO SCH (06:01)
[2017-05-12] MEDS: HEPARIN 5,000 UNITS/ML, 1ML SQ SCH ×2 (08:00→16:00)
[2017-05-12 08:17] VITALS: BP 126/69
[2017-05-12] MEDS: FOLIC ACID 1 MG TABLET PO SCH (08:43)
[2017-05-12] MEDS: FLUTICASONE NASAL SPRAY 16GM NAS SCH ×2 (08:43→20:34)
[2017-05-12] MEDS: TAMSULOSIN 0.4 MG CAP.ER.24H PO SCH (08:43)
[2017-05-12] MEDS: SENNA/DOCUSATE TABLET PO SCH (08:44)
[2017-05-12] MEDS: THIAMINE 100MG TABLET PO SCH (08:44)
[2017-05-12] MEDS: METOPROLOL TARTRATE 25 MG TABLET PO SCH ×2 (08:44→20:34)
[2017-05-12 11:24] LABS: OCCBLD OBC PASS
[2017-05-12 14:23] VITALS: BP 104/60
[2017-05-12 19:48] VITALS: BP 121/69
[2017-05-12] MEDS: ATORVASTATIN 20 MG TABLET PO SCH (20:33)
[2017-05-13 01:45] VITALS: BP 127/72
[2017-05-13] MEDS: SODIUM CHLORIDE 0.9% 1,000 ML IV SCH ×2 (02:37→11:57)
[2017-05-13] MEDS: PIPERACILLIN/TAZO/PMX 3.375GM 50 ML IV SCH ×4 (03:48→22:11)
[2017-05-13 05:07] LABS: HEMATOCRIT 30.6 % (39.2-51.8); HEMOGLOBIN 10.1 g/dL (13.7-18.0); WHITE BLOOD COUNT 8.9 x10^3/uL (3.4-10)
[2017-05-13 05:13] LABS: BLOOD UREA NITROGEN 17 mg/dL (7-18)
[2017-05-13] MEDS: LEVOTHYROXINE 75 MCG TABLET PO SCH (05:41)
[2017-05-13] MEDS: VANCOMYCIN 1,500 MG in SODIUM CHLORIDE 0.9% 250 ML IV SCH (05:41)
[2017-05-13] MEDS: ASPIRIN 81 MG TABLET EC PO SCH (05:41)
[2017-05-13] MEDS ORDERED: POTASSIUM CHLORIDE 20 MEQ TAB.ER.PRT PO ONE (07:00)
[2017-05-13 07:05] VITALS: BP 158/61
[2017-05-13] MEDS: HEPARIN 5,000 UNITS/ML, 1ML SQ SCH ×3 (07:50→15:54)
[2017-05-13] MEDS: SENNA/DOCUSATE TABLET PO SCH (07:51)
[2017-05-13] MEDS: THIAMINE 100MG TABLET PO SCH (08:08)
[2017-05-13] MEDS: FLUTICASONE NASAL SPRAY 16GM NAS SCH ×2 (08:08→19:46)
[2017-05-13] MEDS: TAMSULOSIN 0.4 MG CAP.ER.24H PO SCH (08:08)
[2017-05-13] MEDS: METOPROLOL TARTRATE 25 MG TABLET PO SCH ×2 (08:09→19:46)
[2017-05-13] MEDS: FOLIC ACID 1 MG TABLET PO SCH (08:09)
[2017-05-13 12:15] VITALS: BP 135/76
[2017-05-13] MEDS: ATORVASTATIN 20 MG TABLET PO SCH (19:46)
[2017-05-13 19:59] VITALS: BP 157/78
[2017-05-13] MEDS: ACETAMINOPHEN 325 MG TABLET PO PRN (22:11)
[2017-05-14] MEDS: PIPERACILLIN/TAZO/PMX 3.375GM 50 ML IV SCH ×4 (04:00→22:19)
[2017-05-14] MEDS: ASPIRIN 81 MG TABLET EC PO SCH (06:00)
[2017-05-14] MEDS: FLUTICASONE NASAL SPRAY 16GM NAS SCH ×2 (08:00→20:42)
[2017-05-14] MEDS: SENNA/DOCUSATE TABLET PO SCH (08:00)
[2017-05-14] MEDS: TAMSULOSIN 0.4 MG CAP.ER.24H PO SCH (08:00)
[2017-05-14] MEDS: METOPROLOL TARTRATE 25 MG TABLET PO SCH ×2 (08:00→20:42)
[2017-05-14] MEDS: FOLIC ACID 1 MG TABLET PO SCH (08:00)
[2017-05-14] MEDS: HEPARIN 5,000 UNITS/ML, 1ML SQ SCH ×3 (08:00→14:53)
[2017-05-14] MEDS: THIAMINE 100MG TABLET PO SCH (08:00)
[2017-05-14 08:18] LABS: BLOOD UREA NITROGEN 13 mg/dL (7-18)
[2017-05-14 08:22] LABS: HEMATOCRIT 29.2 % (39.2-51.8); HEMOGLOBIN 9.7 g/dL (13.7-18.0); WHITE BLOOD COUNT 8.3 x10^3/uL (3.4-10)
[2017-05-14] MEDS: SODIUM CHLORIDE 0.9% 1,000 ML IV SCH ×3 (10:33→20:42)
[2017-05-14 13:46] VITALS: BP 134/76
[2017-05-14] MEDS: ACETAMINOPHEN 325 MG TABLET PO PRN ×2 (16:50→20:50)
[2017-05-14] MEDS: VANCOMYCIN 1,500 MG in SODIUM CHLORIDE 0.9% 250 ML IV SCH (18:24)
[2017-05-14 20:00] VITALS: BP 140/80
[2017-05-14] MEDS: ATORVASTATIN 20 MG TABLET PO SCH (20:42)
[2017-05-15 01:36] VITALS: BP 162/93
[2017-05-15] MEDS: ASPIRIN 81 MG TABLET EC PO SCH (05:17)
[2017-05-15] MEDS: LEVOTHYROXINE 75 MCG TABLET PO SCH (05:17)
[2017-05-15] MEDS: PIPERACILLIN/TAZO/PMX 3.375GM 50 ML IV SCH ×3 (05:17→15:59)
[2017-05-15 05:19] LABS: HEMATOCRIT 29.6 % (39.2-51.8); HEMOGLOBIN 9.8 g/dL (13.7-18.0); WHITE BLOOD COUNT 7.6 x10^3/uL (3.4-10)
[2017-05-15 07:40] VITALS: BP 165/86
[2017-05-15] MEDS: HEPARIN 5,000 UNITS/ML, 1ML SQ SCH ×3 (07:46→16:00)
[2017-05-15] MEDS: SENNA/DOCUSATE TABLET PO SCH (09:00)
[2017-05-15] MEDS: SODIUM CHLORIDE 0.9% 1,000 ML IV SCH ×2 (09:28→20:05)
[2017-05-15] MEDS: THIAMINE 100MG TABLET PO SCH (09:28)
[2017-05-15] MEDS: FLUTICASONE NASAL SPRAY 16GM NAS SCH ×2 (09:28→20:05)
[2017-05-15] MEDS: TAMSULOSIN 0.4 MG CAP.ER.24H PO SCH (09:29)
[2017-05-15] MEDS: FOLIC ACID 1 MG TABLET PO SCH (09:29)
[2017-05-15] MEDS: METOPROLOL TARTRATE 25 MG TABLET PO SCH ×2 (09:29→20:06)
[2017-05-15 13:22] VITALS: BP 143/78
[2017-05-15] MEDS ORDERED: VANCOMYCIN 1,600 MG in SODIUM CHLORIDE 0.9% 250 ML IV SCH (17:00)
[2017-05-15 18:50] VITALS: BP 147/66
[2017-05-15] MEDS: AMOXICILLIN/CLAV 875-125MG TABLET PO SCH (20:05)
[2017-05-15] MEDS: ATORVASTATIN 20 MG TABLET PO SCH (20:06)
[2017-05-15] MEDS: ACETAMINOPHEN 325 MG TABLET PO PRN (20:13)
[2017-05-16 02:30] VITALS: BP 165/84
[2017-05-16 04:52] LABS: HEMATOCRIT 30.7 % (39.2-51.8); HEMOGLOBIN 10.2 g/dL (13.7-18.0); WHITE BLOOD COUNT 7.8 x10^3/uL (3.4-10)
[2017-05-16] MEDS: ASPIRIN 81 MG TABLET EC PO SCH (05:54)
[2017-05-16] MEDS: SODIUM CHLORIDE 0.9% 1,000 ML IV SCH ×2 (05:54→16:41)
[2017-05-16 07:50] VITALS: BP 166/97
[2017-05-16] MEDS: AMOXICILLIN/CLAV 875-125MG TABLET PO SCH ×2 (09:14→20:38)
[2017-05-16] MEDS: THIAMINE 100MG TABLET PO SCH (09:14)
[2017-05-16] MEDS: METOPROLOL TARTRATE 25 MG TABLET PO SCH ×2 (09:14→20:39)
[2017-05-16] MEDS: TAMSULOSIN 0.4 MG CAP.ER.24H PO SCH (09:14)
[2017-05-16] MEDS: FOLIC ACID 1 MG TABLET PO SCH (09:14)
[2017-05-16] MEDS: HEPARIN 5,000 UNITS/ML, 1ML SQ SCH ×4 (09:14→23:58)
[2017-05-16] MEDS: ACETAMINOPHEN 325 MG TABLET PO PRN (09:14)
[2017-05-16] MEDS: FLUTICASONE NASAL SPRAY 16GM NAS SCH ×2 (09:14→20:39)
[2017-05-16] MEDS: SENNA/DOCUSATE TABLET PO SCH (09:15)
[2017-05-16 13:53] VITALS: BP 166/82
[2017-05-16 19:15] VITALS: BP 160/82
[2017-05-16] MEDS: ATORVASTATIN 20 MG TABLET PO SCH (20:38)
[2017-05-17] MEDS: SODIUM CHLORIDE 0.9% 1,000 ML IV SCH ×3 (02:08→22:33)
[2017-05-17 02:28] VITALS: BP 175/96
[2017-05-17] MEDS ORDERED: hydrALAzine 20 MG/ML, 1ML IV PRN (03:30)
[2017-05-17 04:33] VITALS: BP 160/83
[2017-05-17 05:06] LABS: HEMATOCRIT 31.3 % (39.2-51.8); HEMOGLOBIN 10.5 g/dL (13.7-18.0); WHITE BLOOD COUNT 8.4 x10^3/uL (3.4-10)
[2017-05-17 05:16] LABS: BLOOD UREA NITROGEN 13 mg/dL (7-18)
[2017-05-17] MEDS: LEVOTHYROXINE 75 MCG TABLET PO SCH (05:49)
[2017-05-17] MEDS: ASPIRIN 81 MG TABLET EC PO SCH (05:49)
[2017-05-17 07:30] VITALS: BP 165/80
[2017-05-17] MEDS: ACETAMINOPHEN 325 MG TABLET PO PRN ×2 (07:31→18:38)
[2017-05-17] MEDS: HEPARIN 5,000 UNITS/ML, 1ML SQ SCH ×2 (08:00→16:31)
[2017-05-17] MEDS: METOPROLOL TARTRATE 25 MG TABLET PO SCH ×2 (09:46→20:29)
[2017-05-17] MEDS: AMOXICILLIN/CLAV 875-125MG TABLET PO SCH ×2 (09:47→20:31)
[2017-05-17] MEDS: THIAMINE 100MG TABLET PO SCH (09:47)
[2017-05-17] MEDS: TAMSULOSIN 0.4 MG CAP.ER.24H PO SCH (09:47)
[2017-05-17] MEDS: FOLIC ACID 1 MG TABLET PO SCH (09:47)
[2017-05-17] MEDS: SENNA/DOCUSATE TABLET PO SCH (09:48)
[2017-05-17] MEDS: FLUTICASONE NASAL SPRAY 16GM NAS SCH ×2 (09:48→20:31)
[2017-05-17 14:30] VITALS: BP 139/78
[2017-05-17] MEDS ORDERED: POTASSIUM CHLORIDE 20 MEQ TAB.ER.PRT PO ONE (18:00)
[2017-05-17 18:26] VITALS: BP 150/72
[2017-05-17] MEDS: ATORVASTATIN 20 MG TABLET PO SCH (20:31)
[2017-05-18] MEDS: HEPARIN 5,000 UNITS/ML, 1ML SQ SCH ×3 (00:17→16:00)
[2017-05-18 01:54] VITALS: BP 167/98
[2017-05-18] MEDS ORDERED: hydrALAzine 20 MG/ML, 1ML IV PRN ×2 (03:30→14:30)
[2017-05-18 05:19] LABS: HEMATOCRIT 30.4 % (39.2-51.8); HEMOGLOBIN 10.1 g/dL (13.7-18.0); WHITE BLOOD COUNT 8.7 x10^3/uL (3.4-10)
[2017-05-18 05:26] LABS: BLOOD UREA NITROGEN 14 mg/dL (7-18)
[2017-05-18] MEDS: ASPIRIN 81 MG TABLET EC PO SCH (05:42)
[2017-05-18 07:30] VITALS: BP 169/90
[2017-05-18] MEDS: FLUTICASONE NASAL SPRAY 16GM NAS SCH (08:37)
[2017-05-18] MEDS: SODIUM CHLORIDE 0.9% 1,000 ML IV SCH (08:37)
[2017-05-18] MEDS: TAMSULOSIN 0.4 MG CAP.ER.24H PO SCH (08:38)
[2017-05-18] MEDS: FOLIC ACID 1 MG TABLET PO SCH (08:38)
[2017-05-18] MEDS: AMOXICILLIN/CLAV 875-125MG TABLET PO SCH (08:38)
[2017-05-18] MEDS: METOPROLOL TARTRATE 25 MG TABLET PO SCH ×2 (08:39→09:00)
[2017-05-18] MEDS: THIAMINE 100MG TABLET PO SCH (08:40)
[2017-05-18] MEDS: SENNA/DOCUSATE TABLET PO SCH (08:41)
[2017-05-18 14:03] VITALS: BP 167/96
[2017-05-18] MEDS ORDERED: ONDANSETRON 2MG/ML, 2ML IVPush PRN (14:30)
[2017-05-18] MEDS ORDERED: BISACODYL 10 MG SUPP PR PRN (14:30)
[2017-05-18] MEDS ORDERED: POLYETHYLENE GLYCOL 17 GM PACKET PO PRN (14:30)
[2017-05-18] MEDS ORDERED: AMOX1TAB12 PO (16:33)
== END 2017-05-18 18:19 | disposition home or self-care (01) | DRG 871 ==
LOC: ED 16:29 → 3NE 16:30
PROVIDERS: ADMIT Hospitalist; ATTEND Hospitalist
DX: A41.9 Sepsis, unspecified organism (principal); E43 Unspecified severe protein-calorie malnutrition; I11.0 Hypertensive heart disease with heart failure; L89.159 Pressure ulcer of sacral region, unspecified stage; E87.2 Acidosis; I50.22 Chronic systolic (congestive) heart failure; I27.2 Other secondary pulmonary hypertension; L03.115 Cellulitis of right lower limb; L03.116 Cellulitis of left lower limb; M21.371 Foot drop, right foot; D63.8 Anemia in other chronic diseases classified elsewhere; E03.9 Hypothyroidism, unspecified; F10.10 Alcohol abuse, uncomplicated; N40.0 Benign prostatic hyperplasia without lower urinary tract symptoms; Z82.3 Family history of stroke; Z87.891 Personal history of nicotine dependence; Z91.14 Patient's other noncompliance with medication regimen; Z91.19 Patient's noncompliance with other medical treatment and regimen; Z95.0 Presence of cardiac pacemaker; Z68.24 Body mass index [BMI] 24.0-24.9, adult; Z90.89 Acquired absence of other organs; Z88.6 Allergy status to analgesic agent; Z88.7 Allergy status to serum and vaccine
CPT/HCPCS: 36415; 80048; 80053; 80202; 82272; 83605; 85025; 87040; 90471; 90715; 93922; 96361; 96365; 96375; J0295; J1644; J2543; J3370; J0360; J2270; J7030; J7050